=== PATIENT | female | born 1980 | race Caucasian/White ===

== ENCOUNTER 2017-07-24 19:18 | Emergency (ER) | payer OTHER ==
[2017-07-24 19:50] VITALS: BP 124/91; PULSE 89; TEMP 98; BMI 24.1
--- NOTE | 2017-07-24 20:25 | PDOC ---
History of Present Illness - General History Source: Patient Exam Limitations: No Limitations - History of Present Illness Initial Comments: 07/24/17 20:56 The patient is a 36 year old female with no significant past medical history who presents to the ED with complaints decreased hearing in left ear that began yesterday. She states that she is experiencing a pressure in the same ear as well but denies any drainage or sinus congestion. The patient denies any fever or chills. <Shawanda Banegas - Last Filed: 07/24/17 20:56> <Bautista Glover - Last Filed: 07/25/17 00:20> - General Chief Complaint: Ear Problem Stated Complaint: LT EAR PAIN Past History <Shawanda Banegas - Last Filed: 07/24/17 20:56> - Past Medical History COPD: No Other medical history: DENIES - Suicide/Smoking/Psychosocial Hx Smoking History: Never smoked <Bautista Glover - Last Filed: 07/25/17 00:20> - Past Medical History Allergies/Adverse Reactions: Allergies Allergy/AdvReac Type Severity Reaction Status Date / Time No Known Allergies Allergy Unverified 07/24/17 19:20 Home Medications: Ambulatory Orders NK [No Known Home Medication] 07/24/17 Review of Systems - Review of Systems Able to Perform ROS?: Yes Comments:: 07/24/17 20:56 GENERAL/CONSTITUTIONAL: No fever or chills. No weakness. HEAD, EYES, EARS, NOSE AND THROAT: Present: ear pain and pressure No change in vision. No sore throat. CARDIOVASCULAR: No chest pain or shortness of breath. RESPIRATORY: No cough, wheezing, or hemoptysis. GASTROINTESTINAL: No nausea, vomiting, diarrhea or constipation. GENITOURINARY: No dysuria, frequency, or change in urination. MUSCULOSKELETAL: No joint or muscle swelling or pain. No neck or back pain. SKIN: No rash NEUROLOGIC: No headache, vertigo, loss of consciousness, or change in strength/ sensation. ENDOCRINE: No increased thirst. No abnormal weight change. HEMATOLOGIC/LYMPHATIC: No anemia, easy bleeding, or history of blood clots. ALLERGIC/IMMUNOLOGIC: No hives or skin allergy. All Other Systems: Reviewed and Negative <Shawanda Banegas - Last Filed: 07/24/17 20:56> *Physical Exam - Vital Signs Last Vital Signs Temp Pulse Resp BP Pulse Ox 98 F 89 18 124/91 99 07/24/17 19:21 07/24/17 19:21 07/24/17 19:21 07/24/17 19:21 07/24/17 19:21 - Physical Exam Comments: 07/24/17 20:57 GENERAL: Awake, alert, and fully oriented, in no acute distress HEAD: No signs of trauma EYES: PERRLA, EOMI, sclera anicteric, conjunctiva clear ENT: Auricles normal inspection, hearing grossly normal, nares patent, oropharynx clear without exudates. Moist mucosa NECK: Normal ROM, supple, no lymphadenopathy, JVD, or masses LUNGS: Breath sounds equal, clear to auscultation bilaterally. No wheezes, and no crackles HEART: Regular rate and rhythm, normal S1 and S2, no murmurs, rubs or gallops ABDOMEN: Soft, nontender, normoactive bowel sounds. No guarding, no rebound. No masses EXTREMITIES: Normal range of motion, no edema. No clubbing or cyanosis. No cords, erythema, or tenderness NEUROLOGICAL: Cranial nerves II through XII grossly intact. Normal speech, normal gait SKIN: Warm, Dry, normal turgor, no rashes or lesions noted. <Shawanda Banegas - Last Filed: 07/24/17 20:56> - Vital Signs Last Vital Signs Temp Pulse Resp BP Pulse Ox 98 F 89 18 124/91 99 07/24/17 19:21 07/24/17 19:21 07/24/17 19:21 07/24/17 19:21 07/24/17 19:21 <Bautista Glover - Last Filed: 07/25/17 00:20> Medical Decision Making - Medical Decision Making 07/25/17 00:20 nl appering TMs trial of sudafed <Bautista Glover - Last Filed: 07/25/17 00:20> *DC/Admit/Observation/Transfer - Attestations Scribe Attestion: 07/24/17 20:57 Documentation prepared by Shawanda Banegas, acting as medical records assistant for Bautista Glover MD/DO. <Shawanda Banegas - Last Filed: 07/24/17 20:56> <Bautista Glover - Last Filed: 07/25/17 00:20> Diagnosis at time of Disposition: Ear pain Qualifiers: Laterality: left Qualified Code(s): H92.02 - Otalgia, left ear - Discharge Dispostion Disposition: HOME Condition at time of disposition: Stable - Patient Instructions Additional Instructions: please follow-up with your doctor for persistence of symptoms
== END 2017-07-24 20:24 | disposition home or self-care (01) ==
LOC: FER 19:18
DX: H92.02 Otalgia, left ear (principal)
CPT/HCPCS: 99281-25